=== PATIENT | male | born 1990 | race African-American/Black ===

== ENCOUNTER 2021-06-11 11:33 | Emergency (ER) | payer OTHER, SELFPAY ==
[2021-06-11 11:37] VITALS: BP 117/59; PULSE 63; RESP 14; TEMP 36.8; O2SAT 99; BMI 29.0
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
[2021-06-11 11:46] VITALS: BP 115/67; PULSE 63; O2SAT 99
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
[2021-06-11 12:00] VITALS: PULSE 60; O2SAT 100
--- NOTE | 2021-06-11 12:03 | PC.NURSE ---
Pt having CT head,neck and xray chest,pelvis and tib/fib
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
[2021-06-11 12:09] LABS: Add Manual Diff / Slide Review NO; Basophils Absolute Auto 0 /uL (0-100); Basophils Percent Auto 0.8 % (0-2); Eosinophils Absolute Auto 100 /uL (0-450); Eosinophils Percent Auto 2.2 % (2-4); Hematocrit 43.8 % (41-53); Hemoglobin 14.8 g/dL (13.5-17.5); Lymphocytes Absolute Auto 1000 /uL (1100-4500); Lymphocytes Percent Auto 23.2 % (25-40); Mean Corpuscular HGB Conc 33.7 % (30-36); Mean Corpuscular Hemoglobin 30.1 PG (26-34); Mean Corpuscular Volume 89.1 fL (80-100); Monocytes Absolute Auto 200 /uL (0-900); Monocytes Percent Auto 5.8 % (3-14); Neutrophils Absolute Auto 2800 /uL (1500-7000); Platelet Count 90 X10^3/uL (150-400); Red Blood Cell Count 4.92 X10^6/uL (4.5-5.9); Red Cell Distribution Width 15.3 % (11.6-14.8); White Blood Cell Count 4.2 X10^3/uL (4.5-11.0)
[2021-06-11 12:21] LABS: Alanine Aminotransferase 23 IU/L (<50); Albumin 4.7 g/dL (3.5-5.0); Albumin Globulin Ratio 1.5 (1.0-2.8); Alkaline Phosphatase 77 U/L (38-126); Aspartate Aminotransferase 40 IU/L (17-59); BUN Creatinine Ratio 9.6 (6-22); Bilirubin Total 1.7 mg/dL (0.2-1.3); Blood Urea Nitrogen 11 mg/dL (9-20); Calcium 9.2 mg/dL (8.4-10.2); Carbon Dioxide 30 mmol/L (22-32); Chloride 105 mmol/L (98-107); Creatine Kinase 297 U/L (55-170); Estimated Glomerular Filt Rate > 60.0 mL/min (>60); Globulin 3.2 g/dL (1.7-4.1); Glucose 68 mg/dL (70-100); Sodium 139 mmol/L (137-145); Total Protein 7.9 g/dL (6.3-8.2)
[2021-06-11 12:24] LABS: HEMOLYSIS 120 (0-50); Potassium 5.4 mmol/L (3.4-5.1)
[2021-06-11 12:26] VITALS: BP 116/60; PULSE 61; O2SAT 98
[2021-06-11 12:30] VITALS: BP 119/68; PULSE 62; O2SAT 99
[2021-06-11 12:32] LABS: Troponin I < 0.012 ng/mL (0.01-0.034)
[2021-06-11 12:36] LABS: CKMB % Relative Index 0.1 % (1.5-5.0); Creatine Kinase MB < 0.22 ng/mL (<2.37)
[2021-06-11 12:59] VITALS: BP 119/72; PULSE 61; RESP 18; O2SAT 99
== END 2021-06-11 13:01 | disposition home or self-care (01) ==
LOC: ED 12:51
PROVIDERS: Emergency Provider Emergency Medicine; PCP Physician Assistant
DX: S80.12XA Contusion of left lower leg, initial encounter (principal); M54.2 Cervicalgia; S09.90XA Unspecified injury of head, initial encounter; V89.2XXA Person injured in unspecified motor-vehicle accident, traffic, initial encounter
CPT/HCPCS: 70450; 71045; 72125; 72170; 73590; 80053; 82550; 82553; 84484; 85025; 93005; 99284